=== PATIENT | female | born 1970 | race Caucasian/White ===

== ENCOUNTER 2021-06-17 08:37 | Day surgery (SDC) | payer OTHER, SELFPAY ==
[2021-06-17] MEDS ORDERED: MIDAZOLAM 5 MG/5 ML VIAL ONE (09:43)
[2021-06-17] MEDS ORDERED: diphenhydrAMINE 50 MG/ML VIAL ONE (09:43)
[2021-06-17] MEDS ORDERED: fentaNYL citrate 0.05 MG/ML VIAL ONE (09:59)
[2021-06-17] MEDS: MIDAZOLAM 2 MG/2 ML VIAL IVP ONE (10:14)
[2021-06-17] MEDS: fentaNYL citrate 0.05 MG/ML VIAL IVP ONE (10:15)
[2021-06-17] MEDS: diphenhydrAMINE 50 MG/ML VIAL IVP ONE (10:25)
== END 2021-06-17 10:58 | disposition home or self-care (01) ==
LOC: MDS 08:37 → MMU 08:37 → MDS 10:58
PROVIDERS: ATTEND Internal Medicine Gastroenterology
DX: Z12.11 Encounter for screening for malignant neoplasm of colon (principal); K57.30 Diverticulosis of large intestine without perforation or abscess without bleeding; Z20.822 Contact with and (suspected) exposure to COVID-19
CPT/HCPCS: 45378; 81025; 87426; J1200; J2250; J3010